=== PATIENT | female | born 1950 | race African-American/Black ===

== ENCOUNTER 2018-12-07 10:15 | Inpatient (IN) | payer OTHER ==
[2018-12-07] VITALS (38 sets, daily range): BP systolic 96–146; BP diastolic 61–96
[~2018-12-07] VITALS: Ht 165.1 cm; Wt 94.3 kg
[~2018-12-07 10:15] MED LIST: ASPI-1079 PO
[2018-12-07] MEDS ORDERED: NALOXONE HCL 1 MG/ML 2ML VIAL ONE (10:41)
[2018-12-07] MEDS ORDERED: SODIUM CHLORIDE 0.9% 1000ML BAG (SEPSIS BOLUS) IV ONE ×2 (10:45→12:15)
[2018-12-07] MEDS ORDERED: NALOXONE HCL 0.4 MG/ML 1ML VIAL IV ONE (10:45)
[2018-12-07] MEDS ORDERED: PHENYTOIN SODIUM 1,000 MG in SODIUM CHLORIDE 0.9% 100 ML IV ONE (11:00)
[2018-12-07] MEDS ORDERED: MANNITOL 20% 250 ML IV ONE (11:00)
[2018-12-07 11:06] LABS: HEMATOCRIT. 52.2 % (36.0-48.0); HEMOGLOBIN. 17.5 g/dL (12.0-16.0); MEAN CORPUSCULAR HEMOGLOBIN 30.6 pg (28.0-32.0); MEAN CORPUSCULAR VOLUME 91.3 fL (81.0-99.0); MEAN PLATELET VOLUME 9.2 fl (7.4-10.4); PLATELET 330 x1000/uL (130-400); RED BLOOD CELL COUNT 5.72 mill/uL (4.2-5.4); RED CELL DISTRIBUTION WIDTH 15.2 % (11.6-14.6)
[2018-12-07 11:13] LABS: CHLORIDE 108 mEq/L (98-107); INR 1.3; PROTHROMBIN TIME 12.8 sec (9.1-11.1)
[2018-12-07 11:17] LABS: ETHANOL BLOOD < 10 mg/dL
[2018-12-07 11:25] LABS: PHENOBARBITAL < 2.1 ug/mL (15.0-40.0)
[2018-12-07] MEDS ORDERED: PHENYTOIN SODIUM 100MG/2ML VIAL IV ONE (11:40)
[2018-12-07 11:43] LABS: PLATELET ESTIMATE NORMAL
[2018-12-07 11:50] LABS: CARBAMAZEPINE < 0.5 ug/mL (4-12)
[2018-12-07] MEDS ORDERED: ETOMIDATE 2MG/ML 10ML VIAL IV ONE (12:00)
[2018-12-07] MEDS ORDERED: EPINEPHRINE 0.1MG/ML (1:10,000) 10ML SYR ONE (12:00)
[2018-12-07] MEDS ORDERED: SODIUM CHLORIDE 0.9% 10ML VIAL ONE (12:00)
[2018-12-07] MEDS ORDERED: SODIUM BICARBONATE 7.5% 0.9 MEQ/ML 50ML SYR IV ONE (12:00)
[2018-12-07] MEDS ORDERED: CALCIUM CHLORIDE 1GM/10ML SYR IV ONE (12:00)
[2018-12-07] MEDS ORDERED: VECURONIUM BROMIDE 10 MG/VIAL IV ONE (12:00)
[2018-12-07 12:02] LABS: CLARITY URINE CLEAR (CLEAR); COLOR URINE YELLOW (YELLOW); KETONES URINE TRACE (NEGATIVE); LEUKOCYTE ESTERASE URINE NEGATIVE (NEGATIVE); NITRITE URINE NEGATIVE (NEGATIVE); OCCULT BLOOD URINE NEGATIVE (NEGATIVE); PH URINE 5.5 (4.5-8.0); PROTEIN URINE 1+ (NEGATIVE); SPECIFIC GRAVITY URINE 1.012 (1.005-1.030)
[2018-12-07] MEDS ORDERED: PIPERACILLIN/TAZ 3.375G PREMIX 50 ML IV ONE (12:15)
[2018-12-07] MEDS ORDERED: VANCOMYCIN 1 G PREMIX 200 ML IV ONE (12:15)
[2018-12-07 12:18] LABS: *AMPHETAMINES SCREEN URINE NEGATIVE (NEGATIVE); *BARBITURATES SCREEN URINE NEGATIVE (NEGATIVE); *BENZODIAZEPINES SCREEN URINE NEGATIVE (NEGATIVE); CANNABINOID URINE SCREEN PRESUMTIVE POSITIVE (NEGATIVE)
[2018-12-07 12:19] LABS: *COCAINE SCREEN URINE NEGATIVE (NEGATIVE); METHADONE URINE SCREEN NEGATIVE (NEGATIVE); OPIATES URINE SCREEN NEGATIVE (NEGATIVE); PHENCYCLIDINE URINE SCREEN NEGATIVE (NEGATIVE)
[2018-12-07] MEDS ORDERED: NOREPINEPHRINE 4MG/250ML PMX 250 ML IV ONE (12:40)
[2018-12-07] MEDS ORDERED: NOREPINEPHRINE 4 MG in DEXT 5% WATER 246 ML IV ONE (13:00)
[2018-12-07] MEDS ORDERED: ONDANSETRON HCL 4MG/2ML INJ IV PRN (14:45)
[2018-12-07] MEDS ORDERED: ACETAMINOPHEN 325MG TABLET PO PRN (14:45)
[2018-12-07] MEDS: DEXT 5%/0.45% NACL 1000ML 1,000 ML IV SCH (15:26)
[2018-12-07 15:35] LABS: BG BASE EXCESS -6.3 mmol/L (-2.0-2.0); BG CARBOXYHEMOGLOBIN 1.6 % (0.5-1.5); BG DEOXYHEMOGLOBIN 1.4 % (0.0-5.0); BG FRACTION INSPIRED OXYGEN 80; BG HCO3 ACT 17.4 mmol/L (22.0-26.0); BG METHEMOGLOBIN 0.5 % (0.0-1.5); BG OXYGEN SATURATION 98.6 % (92.0-98.5); BG OXYHEMOGLOBIN 96.5 % (94.0-97.0); BG PCO2 30.1 mmHg (35.0-45.0); BG PH 7.381 (7.350-7.450); BG PO2 131.5 mmHg (75.0-100.0); BG SAMPLE SITE RIGHT RADIAL; BG TIDAL VOLUME(mL) 550 mL; BG TOTAL HEMOGLOBIN 14.9 g/dL (12.0-18.0); BG VENT MODE VENT - A/C; BG VENT RATE 14 set
[2018-12-07] MEDS: PANTOPRAZOLE SODIUM 40 MG/VIAL IV SCH (15:49)
[2018-12-07] MEDS: DEXAMETHASONE 4MG/ML 1ML VIAL IV SCH ×2 (17:27→23:46)
[2018-12-07] MEDS ORDERED: NOREPINEPHRINE 8 MG in DEXT 5% WATER 242 ML IV PRN (18:45)
[2018-12-07] MEDS ORDERED: PIPERACILLIN/TAZ 2.25G PREMIX 50 ML IV SCH (19:00)
[2018-12-07] MEDS: PIPERACILLIN/TAZ 2.25G PREMIX 50 ML IV SCH (20:25)
[2018-12-07] MEDS: LEVETIRACETAM 500 MG in SODIUM CHLORIDE 0.9% 100 ML IV SCH (21:23)
[2018-12-08] VITALS (80 sets, daily range): BP systolic 95–130; BP diastolic 64–87
[2018-12-08 00:03] LABS: CREATINE KINASE MB FRACTION 28.1 ng/mL (0.5-3.6)
[2018-12-08] MEDS: PIPERACILLIN/TAZ 2.25G PREMIX 50 ML IV SCH ×4 (01:05→19:51)
[2018-12-08] MEDS: DEXT 5%/0.45% NACL 1000ML 1,000 ML IV SCH ×2 (04:05→23:24)
[2018-12-08] MEDS: IPRATROPIUM/ALBUTEROL 0.5-3(2.5)MG/3ML NEB INH PRN ×3 (04:14→15:32)
[2018-12-08 05:30] LABS: HEMATOCRIT. 43.1 % (36.0-48.0); HEMOGLOBIN. 14.5 g/dL (12.0-16.0); MEAN CORPUSCULAR HEMOGLOBIN 30.7 pg (28.0-32.0); MEAN CORPUSCULAR VOLUME 91.5 fL (81.0-99.0); MEAN PLATELET VOLUME 9.4 fl (7.4-10.4); PLATELET 246 x1000/uL (130-400); RED BLOOD CELL COUNT 4.71 mill/uL (4.2-5.4); RED CELL DISTRIBUTION WIDTH 15.4 % (11.6-14.6)
[2018-12-08 05:38] LABS: CHLORIDE 111 mEq/L (98-107)
[2018-12-08 05:47] LABS: LDL CHOLESTEROL 78 mg/dL (5-100)
[2018-12-08 05:48] LABS: CREATINE KINASE MB FRACTION 18.8 ng/mL (0.5-3.6)
[2018-12-08 05:49] LABS: HDL CHOLESTEROL 28 mg/dL (40-59); T4 FREE 1.72 ng/dL (0.76-1.46)
[2018-12-08 06:01] LABS: CREATINE KINASE 1639 IU/L (26-192)
[2018-12-08] MEDS: DEXAMETHASONE 4MG/ML 1ML VIAL IV SCH ×4 (06:08→23:15)
[2018-12-08] MEDS: PANTOPRAZOLE SODIUM 40 MG/VIAL IV SCH (07:56)
[2018-12-08 08:01] LABS: BG BASE EXCESS -3.8 mmol/L (-2.0-2.0); BG CARBOXYHEMOGLOBIN 0.8 % (0.5-1.5); BG DEOXYHEMOGLOBIN 0.8 % (0.0-5.0); BG FRACTION INSPIRED OXYGEN 60; BG HCO3 ACT 17.6 mmol/L (22.0-26.0); BG METHEMOGLOBIN 0.6 % (0.0-1.5); BG OXYGEN SATURATION 99.2 % (92.0-98.5); BG OXYHEMOGLOBIN 97.8 % (94.0-97.0); BG PCO2 23.9 mmHg (35.0-45.0); BG PH 7.486 (7.350-7.450); BG PO2 172.4 mmHg (75.0-100.0); BG SAMPLE SITE RIGHT BRACHIAL; BG TIDAL VOLUME(mL) 550 mL; BG TOTAL HEMOGLOBIN 14.4 g/dL (12.0-18.0); BG VENT MODE VENT - A/C; BG VENT RATE 14 set
[2018-12-08] MEDS: LEVETIRACETAM 500 MG in SODIUM CHLORIDE 0.9% 100 ML IV SCH ×2 (08:40→22:10)
[2018-12-08] MEDS: VANCOMYCIN 1250MG in DEXTROSE 5% WATER 250ML IV SCH (11:59)
[2018-12-08 14:58] LABS: PLATELET ESTIMATE NORMAL
[2018-12-09] VITALS (65 sets, daily range): BP systolic 90–117; BP diastolic 56–81
[2018-12-09] MEDS: PIPERACILLIN/TAZ 2.25G PREMIX 50 ML IV SCH ×4 (01:07→19:56)
[2018-12-09] MEDS: VANCOMYCIN 1250MG in DEXTROSE 5% WATER 250ML IV SCH (04:02)
[2018-12-09] MEDS: DEXAMETHASONE 4MG/ML 1ML VIAL IV SCH ×3 (05:30→18:52)
[2018-12-09 05:32] LABS: HEMATOCRIT. 37.6 % (36.0-48.0); HEMOGLOBIN. 12.6 g/dL (12.0-16.0); MEAN CORPUSCULAR HEMOGLOBIN 30.5 pg (28.0-32.0); MEAN CORPUSCULAR VOLUME 90.8 fL (81.0-99.0); PLATELET 213 x1000/uL (130-400); RED BLOOD CELL COUNT 4.14 mill/uL (4.2-5.4)
[2018-12-09] MEDS: IPRATROPIUM/ALBUTEROL 0.5-3(2.5)MG/3ML NEB INH PRN (08:25)
[2018-12-09] MEDS: PANTOPRAZOLE SODIUM 40 MG/VIAL IV SCH (08:30)
[2018-12-09] MEDS: LEVETIRACETAM 500 MG in SODIUM CHLORIDE 0.9% 100 ML IV SCH ×2 (08:30→20:54)
[2018-12-09 09:57] LABS: PLATELET ESTIMATE NORMAL
[2018-12-09 12:15] LABS: BG BASE EXCESS -2.7 mmol/L (-2.0-2.0); BG CARBOXYHEMOGLOBIN 0.3 % (0.5-1.5); BG DEOXYHEMOGLOBIN 1.1 % (0.0-5.0); BG FRACTION INSPIRED OXYGEN 60; BG HCO3 ACT 18.2 mmol/L (22.0-26.0); BG METHEMOGLOBIN 0.5 % (0.0-1.5); BG OXYGEN SATURATION 98.9 % (92.0-98.5); BG OXYHEMOGLOBIN 98.1 % (94.0-97.0); BG PCO2 22.4 mmHg (35.0-45.0); BG PH 7.527 (7.350-7.450); BG PO2 210.5 mmHg (75.0-100.0); BG SAMPLE SITE RIGHT RADIAL; BG TIDAL VOLUME(mL) 550 mL; BG TOTAL HEMOGLOBIN 13.1 g/dL (12.0-18.0); BG VENT MODE VENT - A/C; BG VENT RATE 14 set
[2018-12-09] MEDS: DEXT 5%/0.45% NACL 1000ML 1,000 ML IV SCH (16:47)
[2018-12-10] VITALS (33 sets, daily range): BP systolic 95–129; BP diastolic 60–84
[2018-12-10] MEDS: DEXAMETHASONE 4MG/ML 1ML VIAL IV SCH ×5 (00:17→23:51)
[2018-12-10] MEDS: PIPERACILLIN/TAZ 2.25G PREMIX 50 ML IV SCH ×4 (01:47→20:17)
[2018-12-10] MEDS: DEXT 5%/0.45% NACL 1000ML 1,000 ML IV SCH ×3 (05:10→21:16)
[2018-12-10 05:30] LABS: HEMATOCRIT. 35.1 % (36.0-48.0); HEMOGLOBIN. 11.8 g/dL (12.0-16.0); MEAN CORPUSCULAR HEMOGLOBIN 30.5 pg (28.0-32.0); MEAN CORPUSCULAR VOLUME 90.6 fL (81.0-99.0); MEAN PLATELET VOLUME 10.4 fl (7.4-10.4); PLATELET 207 x1000/uL (130-400); RED BLOOD CELL COUNT 3.87 mill/uL (4.2-5.4); RED CELL DISTRIBUTION WIDTH 14.7 % (11.6-14.6)
[2018-12-10] MEDS ORDERED: VANCOMYCIN 1 G PREMIX 200 ML IV SCH (06:00)
[2018-12-10 07:57] LABS: BG BASE EXCESS -2.6 mmol/L (-2.0-2.0); BG CARBOXYHEMOGLOBIN 0.3 % (0.5-1.5); BG DEOXYHEMOGLOBIN 1.5 % (0.0-5.0); BG HCO3 ACT 18.2 mmol/L (22.0-26.0); BG METHEMOGLOBIN 0.3 % (0.0-1.5); BG OXYGEN SATURATION 98.5 % (92.0-98.5); BG OXYHEMOGLOBIN 97.9 % (94.0-97.0); BG PCO2 21.9 mmHg (35.0-45.0); BG PH 7.538 (7.350-7.450); BG PO2 125.5 mmHg (75.0-100.0); BG SAMPLE SITE RIGHT RADIAL; BG TIDAL VOLUME(mL) 550 mL; BG TOTAL HEMOGLOBIN 12.3 g/dL (12.0-18.0); BG VENT MODE VENT - A/C; BG VENT RATE 12 set
[2018-12-10] MEDS: PANTOPRAZOLE SODIUM 40 MG/VIAL IV SCH (08:19)
[2018-12-10 08:58] LABS: PLATELET ESTIMATE NORMAL
[2018-12-10] MEDS: LEVETIRACETAM 500 MG in SODIUM CHLORIDE 0.9% 100 ML IV SCH ×2 (09:05→21:11)
[2018-12-11] VITALS (65 sets, daily range): BP systolic 125–176; BP diastolic 64–96
[2018-12-11] MEDS: PIPERACILLIN/TAZ 2.25G PREMIX 50 ML IV SCH ×4 (02:15→21:53)
[2018-12-11] MEDS: DEXAMETHASONE 4MG/ML 1ML VIAL IV SCH ×3 (05:43→20:35)
[2018-12-11] MEDS: PANTOPRAZOLE SODIUM 40 MG/VIAL IV SCH (09:10)
[2018-12-11] MEDS: LEVETIRACETAM 500 MG in SODIUM CHLORIDE 0.9% 100 ML IV SCH ×2 (09:10→20:36)
[2018-12-11 09:15] LABS: HEMATOCRIT 37.7 % (36.0-48.0); HEMOGLOBIN 12.5 g/dL (12.0-16.0); MEAN CORPUSCULAR VOLUME 90.6 fL (81.0-99.0); PLATELET 285 x1000/uL (130-400); RED BLOOD CELL COUNT 4.16 mill/uL (4.2-5.4); RED CELL DISTRIBUTION WIDTH 14.9 % (11.6-14.6)
[2018-12-11] MEDS: DEXT 5%/0.45% NACL 1000ML 1,000 ML IV SCH (12:17)
[2018-12-12] VITALS (61 sets, daily range): BP systolic 125–240; BP diastolic 64–126
[2018-12-12] MEDS: DEXT 5%/0.45% NACL 1000ML 1,000 ML IV SCH ×2 (01:18→18:18)
[2018-12-12 06:24] LABS: HEMATOCRIT 37.7 % (36.0-48.0); HEMOGLOBIN 12.6 g/dL (12.0-16.0); MEAN CORPUSCULAR HEMOGLOBIN 30.5 pg (28.0-32.0); MEAN CORPUSCULAR VOLUME 91.5 fL (81.0-99.0); PLATELET 300 x1000/uL (130-400); RED BLOOD CELL COUNT 4.12 mill/uL (4.2-5.4)
[2018-12-12] MEDS: PIPERACILLIN/TAZ 2.25G PREMIX 50 ML IV SCH ×3 (06:26→21:53)
[2018-12-12] MEDS: IPRATROPIUM/ALBUTEROL 0.5-3(2.5)MG/3ML NEB INH PRN ×2 (07:54→14:19)
[2018-12-12 08:56] LABS: BG BASE EXCESS -3.2 mmol/L (-2.0-2.0); BG DEOXYHEMOGLOBIN 1.5 % (0.0-5.0); BG FRACTION INSPIRED OXYGEN 40; BG HCO3 ACT 17.4 mmol/L (22.0-26.0); BG OXYGEN SATURATION 98.5 % (92.0-98.5); BG OXYHEMOGLOBIN 96.5 % (94.0-97.0); BG PCO2 22.1 mmHg (35.0-45.0); BG PEEP (cmH2O) 0 cmH2O; BG PH 7.514 (7.350-7.450); BG PO2 129.6 mmHg (75.0-100.0); BG SAMPLE SITE RIGHT RADIAL; BG TIDAL VOLUME(mL) 450 mL; BG TOTAL HEMOGLOBIN 15.2 g/dL (12.0-18.0); BG VENT MODE VENT - A/C; BG VENT RATE 14 set
[2018-12-12] MEDS: DEXAMETHASONE 4MG/ML 1ML VIAL IV SCH ×2 (09:14→20:45)
[2018-12-12] MEDS: PANTOPRAZOLE SODIUM 40 MG/VIAL IV SCH (09:14)
[2018-12-12] MEDS: LEVETIRACETAM 500 MG in SODIUM CHLORIDE 0.9% 100 ML IV SCH ×2 (09:14→20:45)
[2018-12-12] MEDS ORDERED: VANCOMYCIN 1250MG in DEXTROSE 5% WATER 250ML IV NR (10:00)
[2018-12-12] MEDS: AMLODIPINE 5MG TABLET PO SCH ×2 (10:50→20:45)
[2018-12-12] MEDS: HYDRALAZINE 20MG/ML VIAL IV PRN (13:23)
[2018-12-12] MEDS ORDERED: LORAZEPAM 2MG/ML CPJ IV NR (14:15)
[2018-12-12 14:45] LABS: BG BASE EXCESS -4.6 mmol/L (-2.0-2.0); BG CARBOXYHEMOGLOBIN 0.5 % (0.5-1.5); BG DEOXYHEMOGLOBIN 3.4 % (0.0-5.0); BG FRACTION INSPIRED OXYGEN 35; BG HCO3 ACT 16.1 mmol/L (22.0-26.0); BG METHEMOGLOBIN 0.4 % (0.0-1.5); BG OXYGEN SATURATION 96.6 % (92.0-98.5); BG OXYHEMOGLOBIN 95.7 % (94.0-97.0); BG PH 7.502 (7.350-7.450); BG PO2 84.4 mmHg (75.0-100.0); BG SAMPLE SITE RIGHT RADIAL; BG TIDAL VOLUME(mL) 550 mL; BG TOTAL HEMOGLOBIN 14.5 g/dL (12.0-18.0); BG VENT MODE VENT - A/C; BG VENT RATE 12 set
[2018-12-12] MEDS: CLONIDINE 0.1MG TABLET PO SCH ×2 (15:02→21:54)
[2018-12-12] MEDS ORDERED: MORPHINE SULFATE 4 MG/ML CPJ (NOT FOR IM USE) IV NR (15:30)
[2018-12-12] MEDS ORDERED: ENALAPRIL 1.25MG/ML VIAL 1ML IV PRN (18:30)
[2018-12-13] VITALS (39 sets, daily range): BP systolic 132–168; BP diastolic 61–88
[2018-12-13] MEDS: DEXT 5%/0.45% NACL 1000ML 1,000 ML IV SCH (05:05)
[2018-12-13 05:39] LABS: HEMATOCRIT. 38.7 % (36.0-48.0); MEAN CORPUSCULAR HEMOGLOBIN 30.5 pg (28.0-32.0); MEAN CORPUSCULAR VOLUME 90.6 fL (81.0-99.0); MEAN PLATELET VOLUME 9.5 fl (7.4-10.4); PLATELET 400 x1000/uL (130-400); RED BLOOD CELL COUNT 4.27 mill/uL (4.2-5.4)
[2018-12-13] MEDS: PIPERACILLIN/TAZ 2.25G PREMIX 50 ML IV SCH ×3 (06:00→21:57)
[2018-12-13] MEDS: CLONIDINE 0.1MG TABLET PO SCH ×3 (06:01→21:54)
[2018-12-13] MEDS: AMLODIPINE 5MG TABLET PO SCH ×2 (08:51→21:52)
[2018-12-13] MEDS: DEXAMETHASONE 4MG/ML 1ML VIAL IV SCH (08:51)
[2018-12-13] MEDS: PANTOPRAZOLE SODIUM 40 MG/VIAL IV SCH (08:51)
[2018-12-13] MEDS: LEVETIRACETAM 500 MG in SODIUM CHLORIDE 0.9% 100 ML IV SCH ×2 (08:51→22:40)
[2018-12-13 10:01] LABS: NUCLEATED RED BLOOD CELLS 1 /100 WBC
[2018-12-13 10:02] LABS: PLATELET ESTIMATE NORMAL
[2018-12-13] MEDS: CARVEDILOL 3.125 MG TABLET PO SCH ×2 (10:44→21:52)
[2018-12-13] MEDS: SODIUM CHLORIDE 0.45% 1,000 ML IV SCH (12:00)
[2018-12-13 12:03] LABS: BG BASE EXCESS -3.2 mmol/L (-2.0-2.0); BG CARBOXYHEMOGLOBIN 0.2 % (0.5-1.5); BG DEOXYHEMOGLOBIN 3.4 % (0.0-5.0); BG FRACTION INSPIRED OXYGEN 35; BG HCO3 ACT 18.5 mmol/L (22.0-26.0); BG METHEMOGLOBIN 0.4 % (0.0-1.5); BG OXYGEN SATURATION 96.6 % (92.0-98.5); BG PCO2 24.9 mmHg (35.0-45.0); BG PH 7.489 (7.350-7.450); BG PO2 88.9 mmHg (75.0-100.0); BG SAMPLE SITE RIGHT RADIAL; BG TIDAL VOLUME(mL) 550 mL; BG TOTAL HEMOGLOBIN 13.4 g/dL (12.0-18.0); BG VENT MODE VENT - A/C; BG VENT RATE 12 set
[2018-12-13] MEDS: IPRATROPIUM/ALBUTEROL 0.5-3(2.5)MG/3ML NEB INH PRN (20:20)
[2018-12-14] VITALS (10 sets, daily range): BP systolic 125–240; BP diastolic 58–122
[2018-12-14] MEDS: IPRATROPIUM/ALBUTEROL 0.5-3(2.5)MG/3ML NEB INH PRN (04:06)
[2018-12-14] MEDS: CLONIDINE 0.1MG TABLET PO SCH ×3 (06:06→22:43)
[2018-12-14] MEDS: PIPERACILLIN/TAZ 2.25G PREMIX 50 ML IV SCH ×3 (06:06→22:28)
[2018-12-14] MEDS: SODIUM CHLORIDE 0.45% 1,000 ML IV SCH ×2 (08:00→22:30)
[2018-12-14 08:27] LABS: HEMATOCRIT 35.6 % (36.0-48.0); MEAN CORPUSCULAR HEMOGLOBIN 30.6 pg (28.0-32.0); MEAN CORPUSCULAR VOLUME 90.8 fL (81.0-99.0); PLATELET 457 x1000/uL (130-400); RED BLOOD CELL COUNT 3.92 mill/uL (4.2-5.4); RED CELL DISTRIBUTION WIDTH 15.1 % (11.6-14.6)
[2018-12-14] MEDS: PANTOPRAZOLE SODIUM 40 MG/VIAL IV SCH (08:32)
[2018-12-14] MEDS: DEXAMETHASONE 4MG/ML 1ML VIAL IV SCH (08:32)
[2018-12-14] MEDS: CARVEDILOL 3.125 MG TABLET PO SCH ×2 (08:33→22:30)
[2018-12-14] MEDS: AMLODIPINE 5MG TABLET PO SCH ×2 (08:33→22:30)
[2018-12-14 08:54] LABS: BG CARBOXYHEMOGLOBIN 0.4 % (0.5-1.5); BG FRACTION INSPIRED OXYGEN 35; BG HCO3 ACT 17.3 mmol/L (22.0-26.0); BG METHEMOGLOBIN 0.7 % (0.0-1.5); BG OXYHEMOGLOBIN 95.9 % (94.0-97.0); BG PCO2 22.9 mmHg (35.0-45.0); BG PH 7.496 (7.350-7.450); BG PO2 90.8 mmHg (75.0-100.0); BG SAMPLE SITE RIGHT RADIAL; BG TIDAL VOLUME(mL) 550 mL; BG TOTAL HEMOGLOBIN 13.3 g/dL (12.0-18.0); BG VENT MODE VENT - A/C; BG VENT RATE 12 set
[2018-12-14] MEDS: LEVETIRACETAM 500 MG in SODIUM CHLORIDE 0.9% 100 ML IV SCH ×2 (09:29→22:43)
[2018-12-14] MEDS ORDERED: VANCOMYCIN 1250MG in DEXTROSE 5% WATER 250ML IV NR (16:00)
[2018-12-15] VITALS (24 sets, daily range): BP systolic 55–179; BP diastolic 29–102
[2018-12-15] MEDS: HYDRALAZINE 20MG/ML VIAL IV PRN (00:58)
[2018-12-15] MEDS: PIPERACILLIN/TAZ 2.25G PREMIX 50 ML IV SCH ×3 (05:56→22:00)
[2018-12-15] MEDS: CLONIDINE 0.1MG TABLET PO SCH ×2 (05:57→14:00)
[2018-12-15 06:52] LABS: HEMATOCRIT 32.2 % (36.0-48.0); HEMOGLOBIN 10.6 g/dL (12.0-16.0); MEAN CORPUSCULAR HEMOGLOBIN 30.9 pg (28.0-32.0); MEAN CORPUSCULAR VOLUME 93.8 fL (81.0-99.0); PLATELET 460 x1000/uL (130-400); RED BLOOD CELL COUNT 3.43 mill/uL (4.2-5.4); RED CELL DISTRIBUTION WIDTH 15.6 % (11.6-14.6)
[2018-12-15] MEDS: CARVEDILOL 3.125 MG TABLET PO SCH ×2 (09:00→21:00)
[2018-12-15] MEDS: AMLODIPINE 5MG TABLET PO SCH ×2 (09:00→21:00)
[2018-12-15] MEDS: PANTOPRAZOLE SODIUM 40 MG/VIAL IV SCH (09:58)
[2018-12-15] MEDS: LEVETIRACETAM 500 MG in SODIUM CHLORIDE 0.9% 100 ML IV SCH ×2 (09:58→21:00)
[2018-12-15] MEDS: DEXAMETHASONE 4MG/ML 1ML VIAL IV SCH (09:58)
[2018-12-15] MEDS: SODIUM CHLORIDE 0.45% 1,000 ML IV SCH (19:24)
[2018-12-16] VITALS (12 sets, daily range): BP systolic 59–76; BP diastolic 34–43
[2018-12-16] MEDS: CLONIDINE 0.1MG TABLET PO SCH ×3 (06:00→20:51)
[2018-12-16] MEDS: PIPERACILLIN/TAZ 2.25G PREMIX 50 ML IV SCH ×3 (06:24→20:48)
[2018-12-16] MEDS: IPRATROPIUM/ALBUTEROL 0.5-3(2.5)MG/3ML NEB INH PRN (08:07)
[2018-12-16] MEDS: CARVEDILOL 3.125 MG TABLET PO SCH ×2 (08:30→20:49)
[2018-12-16] MEDS: AMLODIPINE 5MG TABLET PO SCH ×2 (08:30→20:50)
[2018-12-16] MEDS: DEXAMETHASONE 4MG/ML 1ML VIAL IV SCH (08:31)
[2018-12-16 08:42] LABS: BG BASE EXCESS -13.7 mmol/L (-2.0-2.0); BG CARBOXYHEMOGLOBIN 0.4 % (0.5-1.5); BG DEOXYHEMOGLOBIN 6.9 % (0.0-5.0); BG FRACTION INSPIRED OXYGEN 100; BG METHEMOGLOBIN 0.3 % (0.0-1.5); BG OXYGEN SATURATION 93.1 % (92.0-98.5); BG OXYHEMOGLOBIN 92.4 % (94.0-97.0); BG PCO2 32.9 mmHg (35.0-45.0); BG PH 7.213 (7.350-7.450); BG SAMPLE SITE RIGHT BRACHIAL; BG TIDAL VOLUME(mL) 550 mL; BG TOTAL HEMOGLOBIN 12.1 g/dL (12.0-18.0); BG VENT MODE VENT - A/C; BG VENT RATE 12 set
[2018-12-16] MEDS: PANTOPRAZOLE SODIUM 40 MG/VIAL IV SCH (09:11)
[2018-12-16] MEDS: LEVETIRACETAM 500 MG in SODIUM CHLORIDE 0.9% 100 ML IV SCH ×2 (09:11→20:49)
[2018-12-16] MEDS ORDERED: VANCOMYCIN 1 G PREMIX 200 ML IV SCH (13:00)
[2018-12-16] MEDS: SODIUM CHLORIDE 0.45% 1,000 ML IV SCH (20:48)
[2018-12-17] VITALS: BP 60/35
[2018-12-17 02:00] VITALS: BP 0/0
[2018-12-17] MEDS: PIPERACILLIN/TAZ 2.25G PREMIX 50 ML IV SCH (03:00)
== END 2018-12-17 02:45 | disposition expired | DRG 870 ==
LOC: ER 10:26 → EDBEDREQSVC 11:00 → MICUNO 12:58 → EDBEDREQ 13:09 → ENRESERV 14:04 → 5EST 12-13 16:41
PROVIDERS: ADMIT Internal Medicine; ATTEND Internal Medicine
PROC: 5A1955Z Respiratory Ventilation, Greater than 96 Consecutive Hours (ICD-10-PCS; principal; 2018-12-07)
PROC: 0BH17EZ Insertion of Endotracheal Airway into Trachea, Via Natural or Artificial Opening (ICD-10-PCS; 2018-12-07)
PROC: 4A00X4Z Measurement of Central Nervous Electrical Activity, External Approach (ICD-10-PCS; 2018-12-12)
DX: A41.9 Sepsis, unspecified organism (principal); I50.43 Acute on chronic combined systolic (congestive) and diastolic (congestive) heart failure; J96.00 Acute respiratory failure, unspecified whether with hypoxia or hypercapnia; I21.4 Non-ST elevation (NSTEMI) myocardial infarction; I62.00 Nontraumatic subdural hemorrhage, unspecified; I61.5 Nontraumatic intracerebral hemorrhage, intraventricular; R65.21 Severe sepsis with septic shock; K72.00 Acute and subacute hepatic failure without coma; G93.40 Encephalopathy, unspecified; N17.9 Acute kidney failure, unspecified; E87.2 Acidosis; I42.9 Cardiomyopathy, unspecified; I46.9 Cardiac arrest, cause unspecified; G40.409 Other generalized epilepsy and epileptic syndromes, not intractable, without status epilepticus; R73.9 Hyperglycemia, unspecified; I11.0 Hypertensive heart disease with heart failure; E86.0 Dehydration; I99.8 Other disorder of circulatory system; I73.9 Peripheral vascular disease, unspecified; Z51.5 Encounter for palliative care; Z66 Do not resuscitate; I69.30 Unspecified sequelae of cerebral infarction; I25.2 Old myocardial infarction; Z88.6 Allergy status to analgesic agent; Z79.82 Long term (current) use of aspirin; Z78.1 Physical restraint status
CPT/HCPCS: 31500; 36415; 36556; 36600; 71045; 80048; 80061; 80156; 80165; 80184; 80185; 80202; 80305; 80320; 82375; 82550; 82553; 82805; 82962; 83605; 83880; 84145; 84439; 84443; 84484; 85027; 87070; 92950; 93005; 93306; 93923; 93970; 94002; 94003; 94640; 96365; 96375; 99291; C9113; J0360; J1100; J1165; J1953; J2060; J2270; J2310; J2543; J3370; J3490; J7030; J7050; J7060; J7620; G0480